=== PATIENT | male | born 1985 | race Caucasian/White ===

== ENCOUNTER 2022-03-31 02:07 | Emergency (ER) | payer OTHER ==
[2022-03-31 03:09] LABS: ALBUMIN 3.8 g/dL (3.4-5.0); BILIRUBIN - TOTAL 0.5 mg/dL (0.2-1.0); BUN/CREAT RATIO (CALC) 14.3 RATIO; CREATININE 0.91 mg/dL (0.67-1.17); POTASSIUM 3.8 mmol/L (3.5-5.1); TOTAL PROTEIN 7.8 g/dL (6.4-8.2)
[2022-03-31 03:20] LABS: BASOPHIL 0.6 % (0-2); EOSINOPHIL 5.2 % (0-5); HCT 45.6 % (42.0-52.0); HGB 15.7 g/dl (13.2-18.0); LYMPHOCYTE 33.5 % (15-48); MCH 30.2 pg (25.0-31.0); MCHC 34.4 g/dL (32.0-36.0); MCV 87.7 fL (78.0-100.0); MONOCYTE 10.1 % (0-12); MPV 10.7 fL (6.0-9.5); NEUTROPHIL 49.3 % (41-80); NRBC 0; PLT 241 K/uL (150-400); RDW 11.9 % (11.5-14.0); WBC 7.2 K/uL (4.0-10.5)
[2022-03-31 03:27] LABS: INFLUENZA A NAA NEGATIVE (NEGATIVE)
[2022-03-31 03:46] LABS: CORONAVIRUS 2019 SARS-COV-2 POSITIVE (NEGATIVE)
[2022-03-31] MEDS ORDERED: PREDNISONE 20MG20 MG PO (04:22)
== END 2022-03-31 04:35 | disposition home or self-care (01) ==
LOC: FER 02:07
PROVIDERS: Internal Medicine
DX: U07.1 COVID-19 (principal); Z88.0 Allergy status to penicillin; Z88.2 Allergy status to sulfonamides; Z88.5 Allergy status to narcotic agent
CPT/HCPCS: 36415; 80053; 83735; 84145; 85025; 85379; J1100; J7120; U0002